=== PATIENT | male | born 1965 | race Caucasian/White ===

== ENCOUNTER 2019-12-07 16:56 | Inpatient (IN) | payer MEDICAID ==
[~2019-12-07] VITALS: Ht 175.3 cm; Wt 83.9 kg
[2019-12-07 17:13] VITALS: BP 199/90
[2019-12-07] MEDS ORDERED: TIROSINT50 MCG PO (17:15)
[2019-12-07] MEDS ORDERED: LIPITOR40 MG PO (17:15)
[2019-12-07] MEDS ORDERED: PROAIR HFA8.5 GM INH (17:15)
[2019-12-07] MEDS ORDERED: CETIRIZINE HCL5 M1 PO (17:21)
[2019-12-07] MEDS ORDERED: LEXAPRO 10 MG T10 MG PO (17:21)
[2019-12-07] MEDS ORDERED: FLONASE 0.05%50 MCG NARES (17:21)
[2019-12-07] MEDS ORDERED: CLONIDINE HCL0.2 M2 PO (17:21)
[2019-12-07] MEDS ORDERED: GABAPENTIN100 MG PO (17:22)
[2019-12-07] MEDS ORDERED: INSULIN 70/30 SUBQ (17:22)
[2019-12-07 17:37] LABS: ABSOLUTE EOSINOPHILS 0.2 thou/uL (0.0-0.7); ABSOLUTE LYMPHOCYTES 0.4 thou/uL (0.8-5.3); ABSOLUTE MONOCYTES 0.3 thou/uL (0.0-1.2); BASOPHILS 0.7 %; EOSINOPHILS 4.6 %; HEMATOCRIT 39.9 % (42.0-52.0); HEMOGLOBIN 13.7 gm/dL (14.0-18.0); LYMPHOCYTES 8.3 %; MCHC 34.5 g/dL (28.0-37.0); MCV 84.2 fL (80.0-100.0); MONOCYTES 5.8 %; MPV 8.8 fl. (7.2-11.1); NUCLEATED RBCS 0 /100WBC; PLATELET COUNT* 132 thou/uL (150-400); POLYS 80.6 %; RBC 4.74 mil/uL (4.50-6.00); RDW-CV 15.5 % (10.5-14.5); WBC 4.9 thou/uL (4.0-11.0)
[2019-12-07 17:45] LABS: CALCIUM 9.4 mg/dL (8.5-10.1)
[2019-12-07 17:48] LABS: APTT 29.1 Seconds (25.0-31.3); INR 1.1; PROTIME 11.4 Seconds (9.20-11.50)
[2019-12-07 18:05] LABS: ALBUMIN 3.7 g/dL (3.4-5.0); TOTAL BILIRUBIN 0.6 mg/dL (<0.1-1.0); TOTAL PROTEIN 8.1 g/dL (6.4-8.2)
[2019-12-07 18:35] LABS: URINE BILIRUBIN NEGATIVE (Negative); URINE BLOOD 1+ (Negative); URINE CLARITY CLEAR; URINE COLOR YELLOW; URINE GLUCOSE-RANDOM 1+ (Negative); URINE KETONES NEGATIVE (Negative); URINE LEUKOCYTES-REFLEX NEGATIVE (Negative); URINE NITRITE-REFLEX NEGATIVE (Negative); URINE PROTEIN 3+ (Negative); URINE UROBILINOGEN 0.2 E.U./dl (0.2-1.0)
[2019-12-07 18:42] LABS: AMP/METHAMP Negative (Negative); BARBITURATES Negative (Negative); BENZODIAZEPINES Negative (Negative); COCAINE Negative (Negative); METHADONE Negative (Negative); OPIATES Negative (Negative); PCP Negative (Negative); THC Negative (Negative)
[2019-12-07 18:46] LABS: HYALINE CASTS 0-3 Few /LPF (None Seen); MUCUS None Seen strn/LPF (None Seen); SQUAMOUS NONE SEEN /LPF (0-3)
[2019-12-07 18:47] LABS: BACTERIA-REFLEX None Seen /HPF (None Seen); CRYSTALS None Seen /LPF (None Seen); URINE RBC 3-10 Few /HPF (0-2); URINE WBC-REFLEX None Seen /HPF (0-5)
[2019-12-07 20:05] VITALS: BP 175/68
[2019-12-07 21:17] VITALS: BP 212/100
[2019-12-07 22:11] VITALS: BP 214/109
[2019-12-08 08:10] VITALS: BP 137/81
--- NOTE | 2019-12-08 10:17 | EKG ---
[place] [address] ELECTROCARDIOGRAM REPORT Name: MOIRA MENDOZA Room: [address] ADM IN M.R.#: [id number] Admission: 12/07/19 Attend Phys: Danyell Mueller, Discharge: Date of : 61 Date of Service: 12/07/191806 Report #: [id number] THIS REPORT FOR: //name// [facility] ED Test Date: 2019-12-07 Test Time: 18:07:13 Pat Name: MOIRA MENDOZA Department: Room: [facility] Gender: M Form Maker: : 1965 Requested By: Cori Mijares Order Number: [id number] MD: Oliverio Ann Measurements Intervals [place] Rate: 89 P: 62 UT: 227 QRS: -29 QRSD: 101 T: 1 QT: 407 QTc: 496 Interpretive Statements Sinus rhythm Prolonged UT interval Borderline left axis deviation Borderline T abnormalities, inferior leads Borderline prolonged QT interval Baseline wander in lead(s) V1 No previous ECG available for comparison Electronically Signed On 12-08-2019 10:16:59 CDT by Oliverio Ann [email or web address] <ELECTRONICALLY SIGNED> By: Oliverio Ann MD, [facility] 12/08/19 1016 1807 1807 Oliverio Ann MD, [facility] /EPI
[2019-12-08 16:00] VITALS: BP 134/77
[2019-12-08 22:00] VITALS: BP 201/101
[2019-12-09] VITALS: BP 140/80
[2019-12-09 04:33] LABS: ABSOLUTE EOSINOPHILS 0.2 thou/uL (0.0-0.7); ABSOLUTE LYMPHOCYTES 0.7 thou/uL (0.8-5.3); ABSOLUTE MONOCYTES 0.4 thou/uL (0.0-1.2); ABSOLUTE NEUTROPHILS 3.5 thou/uL (1.6-8.1); EOSINOPHILS 4.1 %; HEMATOCRIT 35.7 % (42.0-52.0); HEMOGLOBIN 12.1 gm/dL (14.0-18.0); LYMPHOCYTES 14.3 %; MCH 28.8 pg (26.0-34.0); MCHC 33.8 g/dL (28.0-37.0); MONOCYTES 8.5 %; MPV 9.2 fl. (7.2-11.1); NUCLEATED RBCS 0 /100WBC; PLATELET COUNT* 114 thou/uL (150-400); POLYS 72.1 %; RBC 4.19 mil/uL (4.50-6.00); RDW-CV 15.3 % (10.5-14.5); WBC 4.8 thou/uL (4.0-11.0)
[2019-12-09 04:41] LABS: CALCIUM 8.5 mg/dL (8.5-10.1); CREATININE 2.3 mg/dL (0.6-1.3); POTASSIUM 4.1 mmol/L (3.5-5.1)
[2019-12-09 08:26] VITALS: BP 191/109
[2019-12-09 16:45] VITALS: BP 167/87
== END 2019-12-09 17:51 | disposition home or self-care (01) | DRG 438 ==
LOC: M.ERS 16:56 → M.TBA-ER 18:55 → M.ORTHSURG 18:55
PROVIDERS: Internal Medicine; Nurse Practitioner Family; ADMIT Internal Medicine; ATTEND Internal Medicine
DX: K85.90 Acute pancreatitis without necrosis or infection, unspecified (principal); J18.9 Pneumonia, unspecified organism; N18.4 Chronic kidney disease, stage 4 (severe); I50.32 Chronic diastolic (congestive) heart failure; I13.0 Hypertensive heart and chronic kidney disease with heart failure and stage 1 through stage 4 chronic kidney disease, or unspecified chronic kidney disease; E78.5 Hyperlipidemia, unspecified; F32.9 Major depressive disorder, single episode, unspecified; E11.40 Type 2 diabetes mellitus with diabetic neuropathy, unspecified; E11.22 Type 2 diabetes mellitus with diabetic chronic kidney disease; I16.0 Hypertensive urgency; Z87.891 Personal history of nicotine dependence; Z79.899 Other long term (current) drug therapy